=== PATIENT | female | born 1965 | race Caucasian/White ===

== ENCOUNTER → 2017-07-16 | Outpatient (CLI) | payer BC | LOC: M LRY 13:38 | DX: R06.02 Shortness of breath (principal) | CPT/HCPCS: 71046 ==

== ENCOUNTER → 2017-10-11 | Outpatient (CLI) | payer BC ==
[2017-10-11 18:16] LABS: INR 0.97; PARTIAL THROMBOPLASTIN TIME 26.4 SECONDS (26.8-37.9)
[2017-10-14 10:28] LABS: GLYCOPROTEIN IV ANTIBODY Negative (Negative); HLA CLASS 1 ANTIBODY Negative (Negative); IIb/IIIa ANTIBODY Negative (Negative); Ia/IIa ANTIBODY Negative (Negative); Ib/IX ANTIBODY Negative (Negative)
== END ==
LOC: M LAB 17:21
DX: Z01.812 Encounter for preprocedural laboratory examination (principal)
CPT/HCPCS: 85610

== ENCOUNTER → 2018-12-08 | Outpatient (REF) | payer BC ==
[~2018-12-08] MED LIST: FLECTOR1.3; MAXA5TAB; MIGRELIEF; MULTIVIT; MUSCLE RELAXANT; NAPR500T; SKEL800T5; TOPI100T; TOPI25TA2; VERA120C3; VOLT1GEL; [UNRECOGNIZED DRUG - OTHER]
== END ==
LOC: M SFHCPLAZ 12:52
PROVIDERS: ATTEND Dermatology
DX: L57.8 Other skin changes due to chronic exposure to nonionizing radiation (principal)

== ENCOUNTER → 2019-05-16 | Outpatient (CLI) | payer BC ==
--- NOTE | 2019-05-17 09:36 | REP ---
REASON: Pain after trauma. FINDINGS: No acute fracture or destructive osseous lesion. Electronically Signed by Jamel Gutierrez DO 05/17/2019 09:56 A
== END ==
LOC: M LRY 15:05
PROVIDERS: ATTEND Nurse Practitioner Family
DX: S69.92XA Unspecified injury of left wrist, hand and finger(s), initial encounter (principal); Y92.9 Unspecified place or not applicable; Y93.9 Activity, unspecified; Y99.9 Unspecified external cause status

== ENCOUNTER → 2019-11-29 | Outpatient (CLI) | payer BC ==
[~2019-11-29] MED LIST changes: +NAPR-885 PO; +OMEP-218 PO; +VENL75CA47 PO; +VERA120T83 PO
== END ==
LOC: M LABSMTC 11:45
PROVIDERS: ATTEND Anesthesiology
DX: Z03.818 Encounter for observation for suspected exposure to other biological agents ruled out (principal)
CPT/HCPCS: C9803; U0003

== ENCOUNTER 2019-12-02 09:30 | Day surgery (SDC) | payer BC ==
[~2019-12-02] VITALS: Ht 167.6 cm; Wt 68.9 kg
[~2019-12-02 09:30] MED LIST changes: +LIDOCAINE 2% 100MG/5ML SDV (FOR ANES.) As Ordered ONE; +NS 1,000 ML IV ONE
[2019-12-02] MEDS ORDERED: propofoL 200 MG/20 ML VIAL As Ordered ONE ×2 (09:44→11:17)
--- NOTE | 2019-12-02 11:44 | ROOR ---
Patient Name: Edith Hutson Procedure Date: 12/02/2019 11:07 AM Date of : 1965 Age: 54 Room: [facility] Gender: Female Note Status: Finalized Procedure: Colonoscopy Indications: Screening patient at increased risk: Family history of 1st-degree relative with colorectal cancer at age 60 years (or older) Providers: Carlos Alvarez MD Referring MD: YULISA PLASENCIA MD Requesting Provider: Medicines: Monitored Anesthesia Care Complications: No immediate complications. Procedure: Pre-Anesthesia Assessment: - Prior to the procedure, a History and Physical was performed, and patient medications and allergies were reviewed. The patient is competent. The risks and benefits of the procedure and the sedation options and risks were discussed with the patient. All questions were answered and informed consent was obtained. Patient identification and proposed procedure were verified by the physician, the nurse and the anesthesiologist in the procedure room. Mental Status Examination: alert and oriented. Airway Examination: normal oropharyngeal airway and neck mobility. Respiratory Examination: clear to auscultation. CV Examination: normal. Prophylactic Antibiotics: The patient does not require prophylactic antibiotics. Prior Anticoagulants: The patient has taken no previous anticoagulant or antiplatelet agents. ASA Grade Assessment: II - A patient with mild systemic disease. After reviewing the risks and benefits, the patient was deemed in satisfactory condition to undergo the procedure. The anesthesia plan was to use monitored anesthesia care (MAC). Immediately prior to administration of medications, the patient was re-assessed for adequacy to receive sedatives. The heart rate, respiratory rate, oxygen saturations, blood pressure, adequacy of pulmonary ventilation, and response to care were monitored throughout the procedure. The physical status of the patient was re-assessed after the procedure. The Colonoscope was introduced through the anus and advanced to the terminal ileum, with identification of the appendiceal orifice and IC valve. The colonoscopy was performed without difficulty. The patient tolerated the procedure well. The quality of the bowel preparation was good. The terminal ileum, ileocecal valve, appendiceal orifice, and rectum were photographed. Scope insertion time was 3 minutes. Scope withdrawal time was 9 minutes. The total duration of the procedure was 14 minutes. Findings: The perianal and digital rectal examinations were normal. The terminal ileum appeared normal. A 6 mm polyp was found in the ascending colon. The polyp was sessile. The polyp was removed with a jumbo cold forceps. Resection and retrieval were complete. Verification of patient identification for the specimen was done by the physician and nurse using the patient's name, date and medical record number. Estimated blood loss was minimal. Multiple small-mouthed diverticula were found from sigmoid to descending colon. There was no evidence of diverticular bleeding. Non-bleeding external and internal hemorrhoids were found during retroflexion. The hemorrhoids were medium-sized. Impression: - The examined portion of the ileum was normal. - One 6 mm polyp in the ascending colon, removed with a jumbo cold forceps. Resected and retrieved. - Moderate diverticulosis from sigmoid to descending colon. There was no evidence of diverticular bleeding. - Non-bleeding external and internal hemorrhoids. Recommendation: - Patient has a contact number available for emergencies. The signs and symptoms of potential delayed complications were discussed with the patient. Return to normal activities tomorrow. Written discharge instructions were provided to the patient. - High fiber diet. - Continue present medications. - Await pathology results. - Repeat colonoscopy in 5 years for surveillance based on pathology results and due to family history of colon cancer. - Telephone GI clinic for pathology results in 2 weeks. - Return to primary care physician. Carlos Alvarez MD Carlos Alvarez MD 12/02/2019 11:44:02 AM Electronically signed by Carlos Alvarez MD Number of Addenda: 0 Note Initiated On: 12/02/2019 11:07 AM Estimated Blood Loss: Estimated blood loss was minimal.
[2019-12-02 11:55] VITALS: BP 141/82
== END 2019-12-02 12:09 | disposition home or self-care (01) ==
LOC: M OPP 09:30
PROVIDERS: ATTEND Internal Medicine Gastroenterology
DX: Z12.11 Encounter for screening for malignant neoplasm of colon (principal); Z80.0 Family history of malignant neoplasm of digestive organs; D12.2 Benign neoplasm of ascending colon; K57.30 Diverticulosis of large intestine without perforation or abscess without bleeding; K64.8 Other hemorrhoids; K21.9 Gastro-esophageal reflux disease without esophagitis; Z79.899 Other long term (current) drug therapy; Z88.8 Allergy status to other drugs, medicaments and biological substances; Z91.041 Radiographic dye allergy status

== ENCOUNTER → 2020-07-11 | Outpatient (CLI) | payer BC, OTHER ==
[~2020-07-11] MED LIST changes: -LIDOCAINE 2% 100MG/5ML SDV (FOR ANES.) As Ordered ONE; -NS 1,000 ML IV ONE
--- NOTE | 2020-07-12 09:01 | REP ---
INDICATION: PAIN. COMPARISON: None. TECHNIQUE: Four views of the left elbow were provided. FINDINGS: Four views of the left elbow demonstrate soft tissue swelling adjacent to the medial epicondyle. There is some lateral epicondylar spurring. Joint spaces are preserved. No evidence of joint effusion is seen.. No fracture or subluxation is seen. No opaque foreign body noted. There is mild soft tissue swelling about the olecranon on the lateral view. IMPRESSION: Soft tissue swelling as above. No acute bony abnormality.. <Electronically signed by Simon Pike > 07/12/20 [id number]
== END ==
LOC: M WUC 15:13
PROVIDERS: ATTEND Physician Assistant
DX: S50.02XA Contusion of left elbow, initial encounter (principal); X58.XXXA Exposure to other specified factors, initial encounter; Y92.89 Other specified places as the place of occurrence of the external cause; Y93.89 Activity, other specified; Y99.8 Other external cause status

== ENCOUNTER 2020-11-14 01:11 | Emergency (ER) | payer BC, OTHER ==
[~2020-11-14] VITALS: Ht 167.6 cm; Wt 70.3 kg
[2020-11-14] MEDS ORDERED: BACTRIM 160MG/800MG DS TAB PO ONE (04:25)
[2020-11-14 04:30] VITALS: BP 119/65
[2020-11-14] MEDS ORDERED: BACT800T5 PO (04:54)
== END 2020-11-14 05:02 | disposition home or self-care (01) ==
LOC: M ED 01:11
DX: N39.0 Urinary tract infection, site not specified (principal); Z88.1 Allergy status to other antibiotic agents; Z91.041 Radiographic dye allergy status; Z79.899 Other long term (current) drug therapy

== ENCOUNTER → 2021-06-30 | Outpatient (CLI) | payer BC, OTHER ==
[~2021-06-30] MED LIST changes: +BACT800T5 PO; +OMEP-173 PO; -OMEP-218 PO
== END ==
LOC: M WHC 08:34
PROVIDERS: ATTEND Obstetrics & Gynecology
DX: Z12.31 Encounter for screening mammogram for malignant neoplasm of breast (principal)

== ENCOUNTER → 2021-10-27 | Outpatient (CLI) | payer BC, OTHER | LOC: M WUC 11:22 | PROVIDERS: ATTEND Internal Medicine | DX: R10.30 Lower abdominal pain, unspecified (principal) ==

== ENCOUNTER → 2021-12-19 | Outpatient (CLI) | payer BC, OTHER ==
[~2021-12-19] MED LIST changes: +GASTROGRAFIN SOLUTION 30ML (Q9963) As Ordered ONE; +ISOVUE-370 76% 100ML VIAL As Ordered ONE; +READI-CAT 2 As Ordered ONE
== END ==
LOC: M RAD 12-18 11:58
PROVIDERS: ATTEND Surgery
DX: K57.30 Diverticulosis of large intestine without perforation or abscess without bleeding (principal); R10.31 Right lower quadrant pain; K76.89 Other specified diseases of liver

== ENCOUNTER → 2022-02-04 | Outpatient (CLI) | payer BC, OTHER ==
[~2022-02-04] MED LIST changes: -GASTROGRAFIN SOLUTION 30ML (Q9963) As Ordered ONE; -ISOVUE-370 76% 100ML VIAL As Ordered ONE; -READI-CAT 2 As Ordered ONE
== END ==
LOC: M LABSMTC 11:39
PROVIDERS: ATTEND Anesthesiology
DX: Z01.818 Encounter for other preprocedural examination (principal); Z11.52 Encounter for screening for COVID-19

== ENCOUNTER 2022-02-08 09:24 | Day surgery (SDC) | payer BC, OTHER ==
[~2022-02-08] VITALS: Ht 167.6 cm; Wt 72.6 kg
[~2022-02-08 09:24] MED LIST changes: +NS 1,000 ML IV ONE
[2022-02-08] MEDS ORDERED: propofoL 200 MG/20 ML VIAL As Ordered ONE (10:24)
[2022-02-08] MEDS ORDERED: LIDOCAINE 2% 100MG/5ML SDV (FOR ANES.) As Ordered ONE (10:24)
[2022-02-08 11:08] VITALS: BP 118/67
== END 2022-02-08 11:22 | disposition home or self-care (01) ==
LOC: M OPP 09:24
PROVIDERS: ATTEND Surgery
DX: K64.1 Second degree hemorrhoids (principal); K59.00 Constipation, unspecified; Z79.1 Long term (current) use of non-steroidal anti-inflammatories (NSAID); Z79.2 Long term (current) use of antibiotics; Z79.899 Other long term (current) drug therapy; Z88.2 Allergy status to sulfonamides; Z88.8 Allergy status to other drugs, medicaments and biological substances; Z91.041 Radiographic dye allergy status; G43.909 Migraine, unspecified, not intractable, without status migrainosus; F41.9 Anxiety disorder, unspecified

== ENCOUNTER → 2022-07-02 | Outpatient (CLI) | payer BC, OTHER ==
[~2022-07-02] MED LIST changes: -NS 1,000 ML IV ONE
== END ==
LOC: M WHC 08:04
PROVIDERS: ATTEND Obstetrics & Gynecology
DX: Z12.31 Encounter for screening mammogram for malignant neoplasm of breast (principal); Z13.820 Encounter for screening for osteoporosis; M85.852 Other specified disorders of bone density and structure, left thigh; M85.851 Other specified disorders of bone density and structure, right thigh

== ENCOUNTER → 2023-01-07 | Outpatient (CLI) | payer BC, OTHER ==
[2023-01-07 10:19] LABS: PLATELET COUNT, AUTOMATED 280 10^3/uL (150-450)
[2023-01-07 10:31] LABS: INR 0.97; PARTIAL THROMBOPLASTIN TIME 25.2 SECONDS (24.8-34.2); PROTHROMBIN TIME 12.6 SECONDS (12.5-14.5)
== END ==
LOC: M LAB 09:35
PROVIDERS: ATTEND Physical Medicine & Rehabilitation
DX: Z01.818 Encounter for other preprocedural examination (principal)

== ENCOUNTER → 2023-03-26 | Outpatient (CLI) | payer BC, OTHER ==
[2023-03-26 10:23] LABS: HEMATOCRIT 36.9 % (36.0-47.0); MEAN CORPUSCULAR HGB CONC 32.5 g/dl (32.0-36.5); MEAN CORPUSCULAR VOLUME 92.3 fl (80.0-96.0); PLATELET COUNT, AUTOMATED 278 10^3/uL (150-450); WHITE BLOOD COUNT 5.4 10^3/uL (4.0-10.0)
[2023-03-26 11:21] LABS: ALBUMIN 3.8 G/DL (3.2-5.2); ALKALINE PHOSPHATASE 71 U/L (46-116); ALT/SGPT 17 U/L (7.0-40); AST/SGOT 13 U/L (<34); BILIRUBIN,TOTAL 0.4 MG/DL (0.3-1.2); BLOOD UREA NITROGEN 16 MG/DL (9-23); CALCIUM LEVEL 9.3 MG/DL (8.5-10.1); CARBON DIOXIDE LEVEL 29 MMOL/L (20-31); CHLORIDE LEVEL 101 MMOL/L (98-107); CHOLESTEROL LEVEL 295 MG/DL (<200); CHOLESTEROL RISK RATIO 3.17 (<5); GLOMERULAR FILTRATION RATE > 60.0 (>51); GLUCOSE, FASTING 84 MG/DL (60-100); HDL CHOLESTEROL 92.9 MG/DL (>40); LDL CHOLESTEROL 183.1 MG/DL (<100); NON-HDL-C 202.1 MG/DL; POTASSIUM SERUM 4.1 MMOL/L (3.5-5.1); SODIUM LEVEL 138 MMOL/L (136-145); TOTAL PROTEIN 6.5 G/DL (5.7-8.2); TRIGLYCERIDES LEVEL 95 MG/DL (<150)
== END ==
LOC: M WUC 08:36
PROVIDERS: ATTEND Internal Medicine
DX: E78.5 Hyperlipidemia, unspecified (principal)

== ENCOUNTER → 2023-04-17 | Outpatient (REF) | payer OTHER | LOC: M LAB REF 16:07 | PROVIDERS: ATTEND Student in an Organized Health Care Education/Training Program | DX: R30.0 Dysuria (principal) ==

== ENCOUNTER → 2023-07-05 | Outpatient (CLI) | payer BC, OTHER | LOC: M WHC 11:34 | PROVIDERS: ATTEND Obstetrics & Gynecology | DX: Z12.31 Encounter for screening mammogram for malignant neoplasm of breast (principal) ==

== ENCOUNTER → 2023-10-08 | Outpatient (CLI) | payer BC, OTHER ==
[2023-10-08 13:43] LABS: ALBUMIN 3.9 G/DL (3.2-5.2); ALKALINE PHOSPHATASE 83 U/L (46-116); ALT/SGPT 24 U/L (7.0-40); AST/SGOT 16 U/L (<34); BILIRUBIN,TOTAL 0.5 MG/DL (0.3-1.2); BLOOD UREA NITROGEN 18 MG/DL (9-23); CALCIUM LEVEL 9.6 MG/DL (8.5-10.1); CARBON DIOXIDE LEVEL 28 MMOL/L (20-31); CHLORIDE LEVEL 105 MMOL/L (98-107); CHOLESTEROL LEVEL 303 MG/DL (<200); CHOLESTEROL RISK RATIO 2.86 (<5); CREATININE FOR GFR 0.73 MG/DL (0.55-1.30); GLOMERULAR FILTRATION RATE > 60.0 (>51); GLUCOSE, FASTING 95 MG/DL (60-100); HDL CHOLESTEROL 105.6 MG/DL (>40); NON-HDL-C 197.4 MG/DL; POTASSIUM SERUM 4.5 MMOL/L (3.5-5.1); SODIUM LEVEL 140 MMOL/L (136-145); TOTAL PROTEIN 6.7 G/DL (5.7-8.2); TRIGLYCERIDES LEVEL 102 MG/DL (<150)
== END ==
LOC: M WUC 08:05
PROVIDERS: ATTEND Internal Medicine
DX: E78.5 Hyperlipidemia, unspecified (principal)

== ENCOUNTER → 2024-07-08 | Outpatient (CLI) | payer BC | LOC: M WHC 11:29 | PROVIDERS: ATTEND Obstetrics & Gynecology | DX: Z12.31 Encounter for screening mammogram for malignant neoplasm of breast (principal); Z13.820 Encounter for screening for osteoporosis; M85.89 Other specified disorders of bone density and structure, multiple sites ==